=== PATIENT | male | born 1960 | race African-American/Black ===

== ENCOUNTER 2021-09-24 14:24 | Inpatient (IN) | payer OTHER ==
[~2021-09-24] VITALS: Ht 172.7 cm; Wt 90.0 kg
[2021-09-24 14:29] VITALS: BP 125/74
[2021-09-24 14:31] VITALS: BP 128/79
--- NOTE | 2021-09-24 14:37 | NUR ---
PT ESCORTED VIA EMS STRETCHER TO ROOM 15 FOR EVAL OF FEVER, NAUSEA AND VOMITING SINCE YESTERDAY WITH GUARD AT BEDSIDE
[2021-09-24] MEDS ORDERED: LISINOPRIL2.5 MG PO (14:38)
[2021-09-24 14:54] LABS: HEMOGLOBIN 13.1 g/dl (14.0-18.0); IMMATURE GRANULOCYTES 0.4 % (0.0-5.0); MEAN CELL VOLUME 81.8 fL CALC (80.0-100.0); MEAN CORPUSCULAR HGB 26.8 pG CALC (26.0-32.0); MEAN CORPUSCULAR HGB CONC 32.8 g/dL CAL (32.0-36.0); NEUT# 17.26 thou/uL (1.82-7.42); RED BLOOD COUNT 4.89 mill/uL (4.70-6.10)
[2021-09-24 14:56] LABS: URINE BILIRUBIN - DIPSTICK NEGATIVE (NEGATIVE); URINE BLOOD DIPSTICK NEGATIVE (NEGATIVE); URINE COLOR YELLOW; URINE GLUCOSE - DIPSTICK NEGATIVE (NEGATIVE); URINE KETONE NEGATIVE (NEGATIVE); URINE LEUK ESTERASE NEGATIVE (NEGATIVE); URINE PH 7.5 (4.5-8.0); URINE PROTEIN - DIPSTICK NEGATIVE (NEG-TRACE); URINE UROBILINOGEN - DIPSTICK 0.2 E.U./dL (0.2)
[2021-09-24 14:57] LABS: URINE NITRITE - DIPSTICK NEGATIVE (Negative)
[2021-09-24 15:00] VITALS: BP 112/67
[2021-09-24 15:06] LABS: GFR FOR AFR.AMER. > 60 ML/MIN (>=60 (CALC)); GFR OTHER RACES 57 ML/MIN (>=60 (CALC))
[2021-09-24 15:13] LABS: ALBUMIN 3.9 g/dL (3.2-5.0); ALKALINE PHOSPHATASE 53 u/l (38-126); ANION GAP 10 (6-22 (CALC)); BILIRUBIN, TOTAL 1.1 mg/dL (0.0-1.4); BUN 16 mg/dL (9-20); BUN/CREATININE RATIO 12 (12-20 (CALC)); CARBON DIOXIDE 23 mmol/l (22-30); CHLORIDE 106 mmol/l (95-108); CREATININE 1.3 mg/dL (0.7-1.3); GFR FOR AFR.AMER. > 60 ML/MIN (>=60 (CALC)); GFR OTHER RACES 57 ML/MIN (>=60 (CALC)); POTASSIUM 3.9 mmol/l (3.5-5.1); SGOT/AST 25 u/l (17-59); SODIUM 135 mmol/l (137-146); TOTAL PROTEIN 7.2 g/dL (6.3-8.2)
[2021-09-24 15:30] VITALS: BP 114/65
[2021-09-24 18:20] VITALS: BP 130/75
--- NOTE | 2021-09-24 18:20 | NUR ---
PT ARRIVED TO MS @ 1820 VIA WHEELCHAIR. RECEIVED REPORT FROM PAULETTE SAEED. PT A&O X3. PT ORIENTED TO ROOM AND USE OF CALLED LIGHT. FLUSHED IV; #20G ON RIGHT AC, HEALTHY AND PATENT. NEW BAG OF IVF HANGING. SAFETY PRECAUTIONS IN [place] WITH CALL LIGHT IN REACH.
--- NOTE | 2021-09-24 18:34 | NUR ---
Pt transported to floor via wheelchair with nurse on tele.
--- NOTE | 2021-09-24 19:35 | NUR ---
PT RESTING IN BED, NO SIGNS OF DISTRESS NOTED, RESP EVEN AND UNLABORED. DISCUSSED POC, PT VERBALIZED UNDERSTANDING. GUARD AT BEDSIDE, PT HAS SCHACKLE TO L LEG TO BED, NOTED TRACE EDEMA TO RLE, PT STATES HX OF STROKE NO DEFICITS NOTED. SKIN INTACT. ASSESSMENT COMPLETED, CALL LIGHT IN REACH, CONTINUE TO MONITOR.
--- NOTE | 2021-09-25 00:07 | NUR ---
IV RICKY VITALE, PT C/O CHILLS, TEMP 99.6. TYLENOL GIVEN. CALL LIGHT IN REACH, CONTINUE TO MONITOR, PT DENIES ANY PAIN. GUARD X1 AT BEDSIDE.
[2021-09-25 00:44] VITALS: BP 115/70
--- NOTE | 2021-09-25 04:30 | NUR ---
PT RESTING IN BED, GUARD AT BED SIDE, SENIOR JAVA WEB DEVELOPER OBTAINING BLOOD, PT VOICES NO NEEDS OR COMPLAINTS AT THIS TIME. CALL LIGHT IN REACH,CONTINUE TO MONITOR.
[2021-09-25 04:42] VITALS: BP 110/80
[2021-09-25 05:22] LABS: HEMATOCRIT 37.7 % (39.0-50.0); HEMOGLOBIN 12.2 g/dl (14.0-18.0); MEAN CELL VOLUME 83.2 fL CALC (80.0-100.0); MEAN CORPUSCULAR HGB 26.9 pG CALC (26.0-32.0); MEAN CORPUSCULAR HGB CONC 32.4 g/dL CAL (32.0-36.0); RED BLOOD COUNT 4.53 mill/uL (4.70-6.10); RED CELL DISTRI WIDTH 14.4 % (11.5-15.5)
[2021-09-25 05:35] LABS: ALBUMIN 3.3 g/dL (3.2-5.0); ALKALINE PHOSPHATASE 51 u/l (38-126); ANION GAP 9 (6-22 (CALC)); BILIRUBIN, TOTAL 1.4 mg/dL (0.0-1.4); BUN 17 mg/dL (9-20); BUN/CREATININE RATIO 15 (12-20 (CALC)); CARBON DIOXIDE 24 mmol/l (22-30); CHLORIDE 106 mmol/l (95-108); CREATININE 1.2 mg/dL (0.7-1.3); GFR FOR AFR.AMER. > 60 ML/MIN (>=60 (CALC)); GFR OTHER RACES > 60 ML/MIN (>=60 (CALC)); POTASSIUM 3.9 mmol/l (3.5-5.1); SGOT/AST 20 u/l (17-59); SODIUM 135 mmol/l (137-146); TOTAL PROTEIN 6.2 g/dL (6.3-8.2)
[2021-09-25 05:53] LABS: C-REACTIVE PROTEIN 17.2 mg/dL (0-0.9)
[2021-09-25 07:12] VITALS: BP 127/78
--- NOTE | 2021-09-25 07:16 | NUR ---
SHIFT CHANGE REPORT, PT AWAKE ALERT AND ORIENTED RESTING IN BED, NO C/O DISCOMFORT AT THIS TIME, IVF INFUSING, TELE MONITOR IN PLACE, CALL ABBOTT IN REACH AND BED LOCKED IN LOWEST POSITION. GUARD X 1 IN ROOM AND PT SHACKLED TO BED.
[2021-09-25 10:29] VITALS: BP 129/85
--- NOTE | 2021-09-25 12:00 | NUR ---
STABLE CONDITION, RESTING IN BED, AATE MEAL
[2021-09-25] MEDS ORDERED: ATORVASTATIN CA20 MG PO (14:05)
[2021-09-25] MEDS ORDERED: NORVASC10 M1 PO (14:05)
[2021-09-25] MEDS ORDERED: HYDROCHLOROT25 MG PO (14:05)
[2021-09-25 14:26] VITALS: BP 129/85
--- NOTE | 2021-09-25 16:00 | NUR ---
NO NEW COMPLAINS, ALL NEEDS ADDRESSED.
[2021-09-25 19:11] VITALS: BP 149/80
--- NOTE | 2021-09-25 19:33 | NUR ---
PATIENT ALERT AND ORIENTED. ABLE TO MAKE NEEDS KNOWN. ASSESSMENT COMPLETE. CUFF OBSERVED TO LEFT WRIST AND LEFT SIDE RAIL. CIRCULATION TO LEFT ARM/HAND WNL. NO COMPLAINTS VOICED. NO SIGNS OF DISTRESS NOTED. GUARD X1 AT BEDSIDE IN ROOM. BED IN LOW POSITION. CALL LIGHT IN REACH.
--- NOTE | 2021-09-25 20:26 | NUR ---
PATIENT RECEIVED SCHEDULED MEDICATION WITH DIFFICULTY.
--- NOTE | 2021-09-25 23:35 | NUR ---
IV ABT HUNG PER EMAR. EMPTIED 400CC YELLOW URINE FROM URINAL. PATIENT DENIES NEEDING ANYTHING. GUARD REMAINS IN ROOM. CHECK CIRCULATION TO LEFT WRIST WITH CUFF ON IT, WNL.
[2021-09-26] VITALS (10 sets, daily range): BP systolic 129–171; BP diastolic 78–91
--- NOTE | 2021-09-26 01:18 | NUR ---
JEEP DRIVER WENT IN ROOM TO CHECK ON PATIENT. PATIENT SLEEPING. GUARD REMAINS AT BEDSIDE. JEEP DRIVER EMPTIED PATIENTS URINAL WELL. CALL LIGHT REMAINS IN REACH.
--- NOTE | 2021-09-26 03:00 | NUR ---
CHECKED ON PATIENT. EMPTIED URINAL 200CC CLEAR YELLOW URINE. CIRCULATION WNL TO LEFT WRIST. CUFF REMAINS ON IT. GUARD REMAINS IN ROOM. PATIENT DENIES NEEDING ANYTHING.
--- NOTE | 2021-09-26 04:15 | NUR ---
PATIENT RESTING IN BED. DENIES NEEDING ANYTHING. CIRCULATION TO LEFT WRIST WNL. GUARD REMAINS AT BEDSIDE. URINAL EMPTIED, 200CC CLEAR YELLOW URINE. BED REMAINS IN LOW POSITION. CALL LIGHT IN REACH.
[2021-09-26 05:39] LABS: HEMATOCRIT 38.6 % (39.0-50.0); HEMOGLOBIN 12.3 g/dl (14.0-18.0); IMMATURE GRANULOCYTES 0.3 % (0.0-5.0); MEAN CELL VOLUME 84.5 fL CALC (80.0-100.0); MEAN CORPUSCULAR HGB 26.9 pG CALC (26.0-32.0); MEAN CORPUSCULAR HGB CONC 31.9 g/dL CAL (32.0-36.0); NEUT# 6.24 thou/uL (1.82-7.42); RED BLOOD COUNT 4.57 mill/uL (4.70-6.10); RED CELL DISTRI WIDTH 14.3 % (11.5-15.5)
--- NOTE | 2021-09-26 05:46 | NUR ---
PATINT RECEIVED ALL SCHEDULED MEDS. GUARD REMAINS IN ROOM. CUFF CHECKED TO LEFT WRIST. CIRCULATION AND SKIN WNL.
[2021-09-26 05:59] LABS: ALBUMIN 3.2 g/dL (3.2-5.0); ALKALINE PHOSPHATASE 55 u/l (38-126); ANION GAP 9 (6-22 (CALC)); BUN 16 mg/dL (9-20); BUN/CREATININE RATIO 12 (12-20 (CALC)); CARBON DIOXIDE 21 mmol/l (22-30); CHLORIDE 112 mmol/l (95-108); CREATININE 1.4 mg/dL (0.7-1.3); GFR FOR AFR.AMER. > 60 ML/MIN (>=60 (CALC)); GFR OTHER RACES 52 ML/MIN (>=60 (CALC)); MAGNESIUM 2.1 mg/dL (1.6-2.3); POTASSIUM 4.2 mmol/l (3.5-5.1); SGOT/AST 29 u/l (17-59); SODIUM 137 mmol/l (137-146); TOTAL PROTEIN 6.1 g/dL (6.3-8.2)
[2021-09-26 06:01] LABS: BILIRUBIN, TOTAL 0.8 mg/dL (0.0-1.4)
--- NOTE | 2021-09-26 07:00 | NUR ---
REPORT RECIEVED FOR DIRECTOR OF CHILD WELFARE SERVICESGLOBAL EXPANSION SALES DIRECTOR
--- NOTE | 2021-09-26 08:55 | NUR ---
PT RESTING IN BED WATCHINBG TV WITH GUARD AT BED SIDE. STATES NO PAIN/NV. ASSESSMENT ALLOWED. IVF INFUSING PER EMAR. ASSESSMENT ALLOWED TELE MONITOR IN PLACE, CONTINOUS MONITORING PER ED. CUFF LOCATED ON LEFT HAND SKIN AROUNF AREA INTACT. FALL/SAFTEY PRECAUTION IN PLACE. CALL LIGHT WITHIN REACH
--- NOTE | 2021-09-26 12:18 | NUR ---
PT WATCHING TV. WITH GUARD AT BEDSIDE. STATES NO PAIN AT THIS TIME. IVF INFUSING PER EMAR. NO DISTRESS NOTED. PT BREATHING EVEN AND UNLABORED. FALL/SAFTEY PRECAUTION IN PLACE. CALL LIGHT IS WITHIN REACH
--- NOTE | 2021-09-26 18:09 | NUR ---
PT RESTING IN SEMI [place]REZ WITH GAURD AT BEDSIDE. STATES NO PAIN. BREATHING EVEN AND UNLABORED. STATES NO NEEDS AT THIS TIME. FALL/SAFTEY PRECAUTION IN PLACE. CALL LIGHT WITHIN REACH
--- NOTE | 2021-09-26 19:23 | NUR ---
PATIENT SITTING UP IN BED. ALERT AND ORIENTED. ASSESSMENT COMPLETE. DENIES ANY PAIN OR DISTRESS. GUARD REMAINS IN ROOM. CUFF TO LEFT WRIST. CIRCULATION AND SKIN WNL. BED REMAINS IN LOW POSITION. CALL ABBOTT IN REACH.
--- NOTE | 2021-09-26 20:49 | NUR ---
PATIENT OBSERVED TO HAVE SHASHA HEMATURIA. NOTIFIED . RECEIVED ORDER FOR UA. UA SENT TO LAB.
--- NOTE | 2021-09-26 20:56 | NUR ---
PROVIDER INSTRUCTED TO HOLD ASA DOSE TOMORROW AND GIVE 0600 HEPARIN.
[2021-09-26 21:11] LABS: URINE BILIRUBIN - DIPSTICK NEGATIVE (NEGATIVE); URINE BLOOD DIPSTICK LARGE (NEGATIVE); URINE GLUCOSE - DIPSTICK >=1000 mg/dL (NEGATIVE); URINE KETONE NEGATIVE (NEGATIVE); URINE LEUK ESTERASE NEGATIVE (NEGATIVE); URINE PROTEIN - DIPSTICK 30 mg/dL (NEG-TRACE); URINE SPECIFIC GRAVITY 1.015
[2021-09-26 21:12] LABS: URINE COLOR RED; URINE NITRITE - DIPSTICK POSITIVE (Negative)
--- NOTE | 2021-09-26 21:14 | NUR ---
NOTIFIED ORTHOTIST OR PROSTHETIST PROVIDER THAT PATIENTS URINE RESULTS WERE BACK.
[2021-09-26 21:16] LABS: URINE RBC TNTC RBC/hpf (0-5); URINE WBC 0-2 WBC/hpf (0-5)
--- NOTE | 2021-09-26 23:25 | NUR ---
PATIENT SITTING UP IN BED. NO COMPLAINTS VOICED AT THIS TIME. URINAL EMPTIED WITH 200CC BONITA URINE. NO BLOOD 0BSERVEDIN URINE. GUARD REMAINS IN ROOM.
[2021-09-27 00:38] VITALS: BP 140/75
--- NOTE | 2021-09-27 00:39 | NUR ---
ROAD DESIGN ENGINEER IN ROOM WITH PATIENT DOING VS AND EMPTYING PATIENTS URINAL. NO BLOOD OBSERVEDIN URINAL.
--- NOTE | 2021-09-27 02:25 | NUR ---
PATIENT RT AC IV SITE LEAKING. PATIENT MENTIONED, ''I MIGHT HAVE DONE IT WHEN MY ARM TOUCHED THE RAIL''. IV REMOVED. CATHETER INTACT.
--- NOTE | 2021-09-27 02:30 | NUR ---
EMPTIED URINAL 550CC LIGHT PINK CORAL TINGED OUTPUT. REPLENISHED PATIENTS ICE WATER.
--- NOTE | 2021-09-27 03:15 | NUR ---
ICU NURSE CAME OVER AND ATTEMPTED TO START IV ON PATIENT 3 TIMES. PATIENT MOVED HIS ARMS EVERY TIME NURSE WOULD GET A FLASH CAUSING THE IV TO COME OUT. CALLED ED TO SEE IF AN ED NURSE COULD COME UP AND ATTEMPT. ENCOURAGED PATIENT TO KEEP DRINKING FLUIDS. BED IN LOW POSITION. CIRCULATION AND SKIN TO LEFT WRIST WNL. GUARD REMOVED CUFF TO LET PATIENT PERFORM RANGE OF MOTION TO LEFT EXTREMITY.
--- NOTE | 2021-09-27 03:54 | NUR ---
ED NURSE ATTEMPTED TO START IV ON PATIENT, UNSUCCESSFUL. PATIENT ENCOURAGED TO KEEP DRINKING FLUIDS. PATIENT NOT SCHEDULED TO RECEIVE NEXT IV ABT UNTIL NOON. WILL INFORM DAY SHIFT NURSE DURING REPORT TO SEE IF SOMEONE ON DAYS CAN ATTEMPY TO START IV.
[2021-09-27 04:06] VITALS: BP 152/84
--- NOTE | 2021-09-27 04:30 | NUR ---
SKIN AND CIRCULATION TO LEFT WRIST WNL. CUFF ON THE LEFT WRIST TO LEFT SIDERAIL. NEW GUARD IN ROOM.
[2021-09-27 05:38] LABS: HEMATOCRIT 38.1 % (39.0-50.0); HEMOGLOBIN 12.4 g/dl (14.0-18.0); IMMATURE GRANULOCYTES 0.4 % (0.0-5.0); MEAN CELL VOLUME 81.6 fL CALC (80.0-100.0); MEAN CORPUSCULAR HGB 26.6 pG CALC (26.0-32.0); MEAN CORPUSCULAR HGB CONC 32.5 g/dL CAL (32.0-36.0); RED BLOOD COUNT 4.67 mill/uL (4.70-6.10); RED CELL DISTRI WIDTH 14.2 % (11.5-15.5)
--- NOTE | 2021-09-27 05:40 | NUR ---
EMPTIED PATIENTS URINAL. 200CC CLEAR YELLOW URINE.
[2021-09-27 06:00] LABS: ALBUMIN 3.4 g/dL (3.2-5.0); ALKALINE PHOSPHATASE 63 u/l (38-126); ANION GAP 9 (6-22 (CALC)); BILIRUBIN, TOTAL 0.5 mg/dL (0.0-1.4); BUN 12 mg/dL (9-20); BUN/CREATININE RATIO 12 (12-20 (CALC)); CARBON DIOXIDE 22 mmol/l (22-30); CHLORIDE 108 mmol/l (95-108); GFR FOR AFR.AMER. > 60 ML/MIN (>=60 (CALC)); GFR OTHER RACES > 60 ML/MIN (>=60 (CALC)); MAGNESIUM 1.8 mg/dL (1.6-2.3); POTASSIUM 3.9 mmol/l (3.5-5.1); SGOT/AST 31 u/l (17-59); SODIUM 136 mmol/l (137-146); TOTAL PROTEIN 6.6 g/dL (6.3-8.2)
--- NOTE | 2021-09-27 06:55 | NUR ---
RECEIVED REPORT FROM PAULETTE OSMAN.
[2021-09-27 07:15] VITALS: BP 151/84
--- NOTE | 2021-09-27 08:10 | NUR ---
PT SITTING HAVING BREAKFAST; A&O X3. EVEN AND UNLABORED RESPIRATIONS; CLEAR LUNG SOUNDS UPON AUSCULTATION. TELEMETRY IN PLACE WITH LAST READING SR-64. NO IV SITE. ACTIVE BOWEL SOUNDS X4 QUADRANTS. EDEMA NOTED ON RIGHT FOOT AND BILATERAL HANDS. SAFETY PRECAUTIONS IN PLACE WITH CALL LIGHT IN REACH.
[2021-09-27 09:47] VITALS: BP 151/84
[2021-09-27] MEDS ORDERED: PREDNISONE20 MG PO (12:04)
[2021-09-27] MEDS ORDERED: ADLT ASA LOW81 MG PO (12:04)
[2021-09-27] MEDS ORDERED: DOXYCYCLINE100 MG PO (12:04)
--- NOTE | 2021-09-27 12:12 | NUR ---
PT WALKED OUT @ 1150 WITHOUT DC INSTRUCTIONS, PT WAS ACCOMPANIED BY A GUARD. ROLL WRAPPER AND NURSE PRACTITIONER NOTIFIED OF SAME.
--- NOTE | 2021-09-27 12:39 | NUR ---
PT CAME BACK FOR D/C INSTRUCTIONS, ACCOMPANIED BY A GUARD.
--- NOTE | 2021-09-27 12:48 | NUR ---
PT EDUCATED ON D/C INTRUCTIONS. NO IV TO REMOVED. TELEMETRY REMOVED, ER NOTIFIED OF SAME. PT HAND CUFF AND ACCOMPANIED BY GUARD.
--- NOTE | 2021-09-27 12:50 | NUR ---
PT LEFT @ 1250, ACCOMPANIED BY GUARD. Discharge instructions given. Patient verbalizes understanding of same. Dis[facility] stable [facility]. All belongings sent with pt.
== END 2021-09-27 12:50 | DRG 603 ==
LOC: ED 14:24 → ED-I 16:20 → MS2 16:54 → ED 16:54 → MS2 16:54
PROVIDERS: Family Medicine; Nurse Practitioner; ADMIT Hospitalist; ATTEND Internal Medicine
DX: L03.115 Cellulitis of right lower limb (principal); M10.071 Idiopathic gout, right ankle and foot; I10 Essential (primary) hypertension; R41.3 Other amnesia; Z86.73 Personal history of transient ischemic attack (TIA), and cerebral infarction without residual deficits; Z20.822 Contact with and (suspected) exposure to COVID-19
CPT/HCPCS: Q9967

== ENCOUNTER 2022-03-23 07:10 | Inpatient (IN) | payer OTHER ==
[2022-03-23] VITALS (20 sets, daily range): BP systolic 95–155; BP diastolic 49–93
[~2022-03-23] VITALS: Ht 152.4 cm; Wt 86.1 kg
[~2022-03-23 07:10] MED LIST: ADLT ASA LOW81 MG PO; ATORVASTATIN CA20 MG PO; DOXYCYCLINE100 MG PO; HYDROCHLOROT25 MG PO; LISINOPRIL2.5 MG PO; NORVASC10 M1 PO; PREDNISONE20 MG PO
--- NOTE | 2022-03-23 07:10 | NUR ---
PATIENT BROUGHT IN VIA EMS UNDER CUSTODY OF [facility]. PROVIDER NOTIFIED OF PATIENT STATUS. NAD.
--- NOTE | 2022-03-23 07:35 | NUR ---
HOLD RACHELE DUMONT MD AT THIS TIME.
[2022-03-23 07:54] LABS: BASO% 0.1 % (0-3); EOS% 0.3 % (0-8); HEMOGLOBIN 13.8 g/dl (14.0-18.0); IMMATURE GRANULOCYTES 0.3 % (0.0-5.0); LYMPH% 4.8 % (15-41); MEAN CELL VOLUME 81.3 fL CALC (80.0-100.0); MEAN CORPUSCULAR HGB 27.4 pG CALC (26.0-32.0); MEAN CORPUSCULAR HGB CONC 33.7 g/dL CAL (32.0-36.0); MONO% 3.8 % (2-13); NEUT# 13.49 thou/uL (1.82-7.42); NEUT% 90.7 % (42-76); RED BLOOD COUNT 5.04 mill/uL (4.70-6.10); RED CELL DISTRI WIDTH 13.4 % (11.5-15.5)
--- NOTE | 2022-03-23 08:17 | NUR ---
PATIENT LYING IN BED WITH GUARDS AT BEDSIDE.
[2022-03-23 08:19] LABS: ALKALINE PHOSPHATASE 66 u/l (38-126); BUN 16 mg/dL (9-20); BUN/CREATININE RATIO 13 (12-20 (CALC)); CHLORIDE 104 mmol/l (95-108); CREATININE 1.2 mg/dL (0.7-1.3); GFR FOR AFR.AMER. > 60 ML/MIN (>=60 (CALC)); GFR OTHER RACES > 60 ML/MIN (>=60 (CALC)); POTASSIUM 3.9 mmol/l (3.5-5.1); SGOT/AST 27 u/l (17-59); SODIUM 140 mmol/l (137-146); TOTAL PROTEIN 7.1 g/dL (6.3-8.2)
[2022-03-23 08:20] LABS: ALBUMIN 4.3 g/dL (3.2-5.0); ANION GAP 11 (6-22 (CALC)); BILIRUBIN, TOTAL 0.9 mg/dL (0.0-1.4); CARBON DIOXIDE 29 mmol/l (22-30)
[2022-03-23] MEDS ORDERED: LISINOPRIL10 MG PO (08:25)
[2022-03-23 09:36] LABS: URINE BILIRUBIN - DIPSTICK NEGATIVE (NEGATIVE); URINE BLOOD DIPSTICK NEGATIVE (NEGATIVE); URINE COLOR YELLOW; URINE GLUCOSE - DIPSTICK NEGATIVE (NEGATIVE); URINE KETONE NEGATIVE (NEGATIVE); URINE LEUK ESTERASE NEGATIVE (NEGATIVE); URINE NITRITE - DIPSTICK NEGATIVE (Negative); URINE PROTEIN - DIPSTICK TRACE mg/dL (NEG-TRACE); URINE SPECIFIC GRAVITY >=1.030; URINE UROBILINOGEN - DIPSTICK 0.2 E.U./dL (0.2)
--- NOTE | 2022-03-23 09:37 | NUR ---
PATIENT RESTING IN BED WITH GUARDS AT BEDSIDE. NO ACUTE DISTRESS NOTED
--- NOTE | 2022-03-23 10:25 | NUR ---
PATIENT EDUCATED ON LYING FLAT. HE STATED UNDERSTANDING. ASSISTED CLIENT TO DRINK WATER FROM A STRAW. PATIENT COMPLAINING OF NECK PAIN. MD NOTIFIED.
--- NOTE | 2022-03-23 11:23 | NUR ---
pt sleeping, no distress, officer at bedside.
--- NOTE | 2022-03-23 12:00 | NUR ---
BED ASSIGNMENT CALL RECEIEVED FROM Rubin OTTO IN ED AT 1149 FOR BED ASSIGNMENT. PT ASSIGNED TO ROOM 274/ NURSE Spenser RAZO LPN. BED ASSIGNMENT PROVIDED TO Rubin OTTO AT 1159
--- NOTE | 2022-03-23 12:38 | NUR ---
PT ARRIVED VIA STRECTHER WITH MOTEL FRONT DESK CLERK AND FACILITY GUARD IV PATENT. BED SIDE REPORT RECIEVED. ORIENTATED PT TO ROOM AND CALL ABBOTT SYSTEM. ADMISSION ASSESSMENT COMPLETED. FALL/SAFTEY PRECAUTION IN PLACE. CALL LIGHT WITHIN REACH
--- NOTE | 2022-03-23 16:00 | NUR ---
PT RESTING IN BED WITH GAURD AT BEDSIDE. BREATHING EVEN AND UNLABORED. NO DISTRESS NOTED. FALL/SAFTEY PRECAUTION IN PLACE. CALL LIGHT WITHIN REACH
--- NOTE | 2022-03-23 20:20 | NUR ---
PT ON BED LOW FOWLERS: A&O X3. EVEN AND UNLABORED RESPIRATIONS; CLEAR LUNG SOUNDS UPON AUSCULTATION. TELEMETRY IN PLACE. IV SITE HEALTHY AND PATENT. ACTIVE BOWEL SOUNDS X4 QUADRANTS. TRACE EDEMA TO RT LEG NOTED. GUARD X1 AT BEDSIDE; SHACKLES IN PLACE. SAFETY PRECAUTIONS IN PLACE WITH CALL LIGHT IN REACH.
[2022-03-24] VITALS (8 sets, daily range): BP systolic 122–151; BP diastolic 68–90
--- NOTE | 2022-03-24 | NUR ---
PT RESTING WITH EYES CLOSED. GUARD 1X AT BEDSIDE. SHACKLES TO BED. NO DISTRESS OR PAIN NOTED. NO NEEDS AT THIS TIME. SAFETY PRECAUTIONS IN PLACE. CALL LIGHT IN REACH.
--- NOTE | 2022-03-24 05:37 | NUR ---
PT RESTING WITH EYES CLOSED. NO DISTRESS OR PAIN NOTED. IV SITE HEALTHY AND PATENT, INFUSING FLUIDS PER ORDER. GUARD 1X AT BEDSIDE. SHACKLES FROM ANKLES TO BED. SAFETY PRECAUTIONS IN PLACE WITH CALL LIGHT IN REACH.
[2022-03-24 05:55] LABS: BASO% 0.1 % (0-3); HEMATOCRIT 37.1 % (39.0-50.0); HEMOGLOBIN 12.7 g/dl (14.0-18.0); IMMATURE GRANULOCYTES 0.5 % (0.0-5.0); LYMPH% 6.1 % (15-41); MEAN CELL VOLUME 83.2 fL CALC (80.0-100.0); MEAN CORPUSCULAR HGB 28.5 pG CALC (26.0-32.0); MEAN CORPUSCULAR HGB CONC 34.2 g/dL CAL (32.0-36.0); MONO% 3.9 % (2-13); NEUT# 17.45 thou/uL (1.82-7.42); NEUT% 89.4 % (42-76); RED BLOOD COUNT 4.46 mill/uL (4.70-6.10); RED CELL DISTRI WIDTH 13.8 % (11.5-15.5)
[2022-03-24 06:12] LABS: ALKALINE PHOSPHATASE 41 u/l (38-126); BILIRUBIN, TOTAL 0.9 mg/dL (0.0-1.4); BUN 20 mg/dL (9-20); BUN/CREATININE RATIO 18 (12-20 (CALC)); CHLORIDE 107 mmol/l (95-108); CREATININE 1.1 mg/dL (0.7-1.3); GFR FOR AFR.AMER. > 60 ML/MIN (>=60 (CALC)); GFR OTHER RACES > 60 ML/MIN (>=60 (CALC)); MAGNESIUM 1.9 mg/dL (1.6-2.3); SGOT/AST 25 u/l (17-59); SODIUM 137 mmol/l (137-146); TOTAL PROTEIN 6.1 g/dL (6.3-8.2)
[2022-03-24 06:24] LABS: ALBUMIN 3.3 g/dL (3.2-5.0); ANION GAP 11 (6-22 (CALC)); CARBON DIOXIDE 23 mmol/l (22-30)
--- NOTE | 2022-03-24 08:00 | NUR ---
SHIFT CHANGE REPORT AT BEDSIDE, PT AWAKE ALERT AND ORIENTED SITTING IN HIGH FOWLERS POSITION IN BED, DENIES PAIN/DISCOMCORT, TELE MONITOR IN PLACE, IVF 0.9NS INFUSING @ 100ML/HR TO SITE IN RAC, CALL ABBOTT IN REACH AND BED LOCKED IN LOWEST POSITION. GUARD X 1 IN ROON AND PT SHACKLED TO BED.
--- NOTE | 2022-03-24 12:00 | NUR ---
CONDITION STABLE, NO NEW COMPLAINS.
--- NOTE | 2022-03-24 16:33 | NUR ---
IV SITE LEAKING SLIGHTLY, NURSE APPEMPTED TO REPLACE IN UNSUCCELLFULLY, PT REFUSES ANY MORE ATTEMPTS AT THIS TIME, ARM IS ELEVATED ON PILLOWS AT THIS TIME AND LEAKING HAS SUBSIDED OR OCCASIONAL DRIPS WITH MOVEMENT ESPECIALLY BENDING. PT TRIES TO KEEP ARM STRAIGHT POSSIBLE.
--- NOTE | 2022-03-24 19:40 | NUR ---
RECIEVED REPORT. PT RESTING IN SEMI FOWLERS POSITION WATCHING TV. GAURD AT BEDSIDE. NO DISTRESS OR NEEDS AT THIS TIME. ALL SAFTEY PRECAUTIONS ARE IN PLACE WITH CALL LIGHT IN REACH
--- NOTE | 2022-03-24 21:19 | NUR ---
PT A/OX3.RESPIRATIONS EVEN AND UNLABORED ON ROOM AIR. LUNG SOUNDS DIMINISHED.TELE MOITORING IN PLACE. BOWEL SOUNDS ACTIVE. #22H LH INFUSING WITH IVF PER ORDER. SKIN INTACT. TRACE EDEMA NOTED TO BLE. PT DENIES OF ANY PAINS OR DISCOMFORTS. DROPLET PRECAUTIONS TO BE IN PLACE, STEWARD/STEWARDESS THIRD AWARE OF ROOM PLACEMENT. ALL SAFTEY PRECAUTIONS ARE IN PLACE WITH CALL LIGHT IN REACH.
[2022-03-25] VITALS (9 sets, daily range): BP systolic 126–156; BP diastolic 59–88
--- NOTE | 2022-03-25 00:39 | NUR ---
PT SLEEPING IN SEMI FOWLERS POSITION. RESPIRATIONS EVEN AND UNLABORED ON ROOM AIR. TELE MONITORING IN PLACE. IV INFUSING WITH IVF PER ORDER. NO S/S OF DISTRESS. ALL SAFTEY PRECAUTIONS ARE IN PLACE WITH CALL LIGHT IN REACH. KEYSHA REMAINS AT BEDSIDE.
--- NOTE | 2022-03-25 04:33 | NUR ---
PT SLEEPING IN SEMI FOWLERS POSITION. RESPIRATIONS EVEN AND UNLABORED ON ROOM AIR. TELE MONITORING IN PLACE. IV INFUSIGN WITH IVF PER ORDER. PT DENIES OF ANY NEEDS. ALL SAFETY PRECAUTIONS ARE IN PLACE WITH CALL LIGHT IN REACH. KEYSHA REMAINS AT BEDSIDE.
[2022-03-25 09:01] LABS: BASO% 0.1 % (0-3); EOS% 0.1 % (0-8); HEMATOCRIT 36.4 % (39.0-50.0); HEMOGLOBIN 12.1 g/dl (14.0-18.0); IMMATURE GRANULOCYTES 0.6 % (0.0-5.0); LYMPH% 12.1 % (15-41); MEAN CELL VOLUME 83.1 fL CALC (80.0-100.0); MEAN CORPUSCULAR HGB 27.6 pG CALC (26.0-32.0); MEAN CORPUSCULAR HGB CONC 33.2 g/dL CAL (32.0-36.0); MONO% 3.9 % (2-13); NEUT# 11.85 thou/uL (1.82-7.42); NEUT% 83.2 % (42-76); RED BLOOD COUNT 4.38 mill/uL (4.70-6.10)
--- NOTE | 2022-03-25 16:00 | NUR ---
PT A/O X3, BREATHING REMAIN EVEN AND NON LBAORED. DENIES ANY NEEDS AT THIS TIME. KEYSHA PRESENT AT BEDSIDE. ALL SAFTEY PRECAUTIONS IN PLACE AT THIS TIME
--- NOTE | 2022-03-25 18:45 | NUR ---
RECIEVED REPORT ON PT. ASSESSED AT BEDSIDE. GAURD AT BEDSIDE. BREATHING IS EVEN AND NON LABORED, DENIES SOB. IV SITE PATENT, IVF RUNNING ORDERED. DENIES ANY NEEDS AT THIS TIME. LL SAFETY PRECAUTIONS IN PLACE AT THIS TIME
--- NOTE | 2022-03-25 19:18 | NUR ---
REPORT RECIEVED FROM Zoe GARZA LPN
--- NOTE | 2022-03-25 20:00 | NUR ---
PATIENT ALERT AND ORIENTED X4. OFFERES NO COMPLIANTS AT THIS TIME. PATIENT REMAINS WITH GUARD AT BEDSIDE. ASSESSENT COMPLETED AT THIS TIME. cALL LIGHT AND BEDISD ETABLE WITHIN REACH.
[2022-03-26] VITALS: BP 156/82
--- NOTE | 2022-03-26 | NUR ---
pATIENT RESTING. RESPIRATIOSN EVEN AND UNLABORED. CALL LIGHT AND BEDSIDE TABLE WITHIN REACH.
[2022-03-26 03:45] VITALS: BP 142/77
[2022-03-26 04:00] VITALS: BP 142/77
--- NOTE | 2022-03-26 04:00 | NUR ---
PATIENT WATCHING TV. GUARD REMAINS AT BEDSIDE. PATIENT DENIES ANY CURRENT NEEDS. CALL LIGHT AND BEDSIDE TABLE WITHIN REACH.
[2022-03-26 07:15] VITALS: BP 147/73
--- NOTE | 2022-03-26 08:09 | NUR ---
PT RESTING COMFORTABLY. MAINTENANCE OPERATOR IN ROOM. VITAL SIGNS STABLE. NO NEEDS AT THIS TIME.
--- NOTE | 2022-03-26 12:16 | NUR ---
DC INSTRUCTIONS GIVEN. MEDICATION INSTRUCTIONS GIVEN. IV DCED. TELE DCED. PT TAKEN BACK TO CORRECTIONS WITH OFFICERS.
== END 2022-03-26 12:10 | DRG 872 ==
LOC: ED 07:10 → ED-I 10:43 → MS2 10:58 → ED 10:58 → MS2 03-26 12:10
PROVIDERS: Family Medicine; ADMIT Internal Medicine; ATTEND Internal Medicine
PROC: 009U3ZX Drainage of Spinal Canal, Percutaneous Approach, Diagnostic (ICD-10-PCS; principal; 2022-03-23)
DX: A41.9 Sepsis, unspecified organism (principal); N17.9 Acute kidney failure, unspecified; R65.20 Severe sepsis without septic shock; I10 Essential (primary) hypertension; M10.9 Gout, unspecified; Z86.73 Personal history of transient ischemic attack (TIA), and cerebral infarction without residual deficits; Z20.822 Contact with and (suspected) exposure to COVID-19
CPT/HCPCS: J1650; J3370